=== PATIENT | female | born 1960 | race Caucasian/White ===

== ENCOUNTER 2018-06-13 21:09 | Emergency (ER) | payer OTHER, BC ==
[2018-06-13 21:55] LABS: ADD MAN DIFF? NO
[2018-06-13 21:56] LABS: BASOPHIL # 0.1 10^3/ul (0.0-0.1); BASOPHILS % 0.9 % (0.0-2.0); EOSINOPHILS # 0.4 10^3/ul (0.0-0.5); EOSINOPHILS % 3.7 % (0.0-7.0); HEMATOCRIT 42.2 % (37.0-47.0); HEMOGLOBIN 14.3 g/dl (12.0-16.0); LYMPHOCYTES # 2.1 10^3/ul (0.8-2.9); LYMPHOCYTES % 21.1 % (15.0-51.0); MEAN CORPUSCULAR HGB CONC 33.9 g/dl (32.0-37.0); MEAN CORPUSCULAR VOLUME 82.7 fl (82.0-101.0); MEAN PLATELET VOLUME 10.3 fl (7.4-10.4); MONOCYTE # 1.2 10^3/ul (0.3-0.9); MONOCYTES % 11.9 % (0.0-11.0); NEUTROPHIL # 6.2 10^3/ul (1.6-7.5); NEUTROPHILS % 62.1 % (39.0-77.0); PLATELET COUNT 308 10^3/UL (140-415); RED CELL DISTRIBUTION WIDTH 15.3 % (11.5-14.5)
[2018-06-13] MEDS: ONDANSETRON 4 MG INJ IV (21:56)
[2018-06-13] MEDS: morphine 2 MG INJ IV ×2 (21:56→23:29)
[2018-06-13 22:06] LABS: URINE BLOOD (Dip) POC Trace-lysed (NEGATIVE); URINE GLUCOSE (Dip) POC Negative (NEGATIVE); URINE KETONES (Dip) POC Negative (NEGATIVE); URINE LEUKOCYTE EST (Dip) POC Trace (NEGATIVE); URINE NITRITE (Dip) POC Negative (NEGATIVE); URINE TOTAL PROTEIN POC Negative (NEGATIVE)
[2018-06-13 22:13] LABS: ALANINE AMINOTRANSFERASE 63 IU/L (13-69); ALBUMIN 4.4 g/dl (3.3-4.9); ALKALINE PHOSPHATASE 107 IU/L (42-121); ANION GAP 13 (5-13); ASPARTATE AMINO TRANSFERASE 61 IU/L (15-46); BILIRUBIN,INDIRECT 0.8 mg/dl (0-1.1); BILIRUBIN,TOTAL 0.8 mg/dl (0.2-1.3); BLOOD UREA NITROGEN 10 mg/dl (7-20); CALCIUM 9.1 mg/dl (8.4-10.2); CARBON DIOXIDE 23 mmol/L (21-31); CHLORIDE 99 mmol/L (97-110); CREATININE 0.66 mg/dl (0.44-1.00); Estimated GFR > 60 mL/min (>60); GLUCOSE 143 mg/dl (70-220); LIPASE 123 U/L (23-300); POTASSIUM 4.4 mmol/L (3.5-5.1); SODIUM 135 mmol/L (135-144); TOTAL PROTEIN 8.4 g/dl (6.1-8.1)
== END 2018-06-13 23:30 | disposition home or self-care (01) ==
LOC: E/R 23:30
DX: K80.50 Calculus of bile duct without cholangitis or cholecystitis without obstruction (principal); C18.9 Malignant neoplasm of colon, unspecified
CPT/HCPCS: 36415; 74176; 80053; 81003; 83690; 85025; 96374; 96375; 99285-25

== ENCOUNTER 2018-07-15 10:50 | Inpatient (IN) | payer OTHER ==
[2018-07-15 11:54] LABS: ADD MAN DIFF? NO
[2018-07-15 11:57] LABS: WHITE BLOOD COUNT 7.4 10^3/ul (4.8-10.8)
[2018-07-15 11:57] LABS: BASOPHIL # 0.1 10^3/ul (0.0-0.1); BASOPHILS % 0.7 % (0.0-2.0); EOSINOPHILS # 0.4 10^3/ul (0.0-0.5); EOSINOPHILS % 5.7 % (0.0-7.0); HEMATOCRIT 40.5 % (37.0-47.0); HEMOGLOBIN 13.4 g/dl (12.0-16.0); LYMPHOCYTES # 1.3 10^3/ul (0.8-2.9); LYMPHOCYTES % 17.8 % (15.0-51.0); MEAN CORPUSCULAR HEMOGLOBIN 28.3 pg (29.0-33.0); MEAN CORPUSCULAR HGB CONC 33.1 g/dl (32.0-37.0); MEAN CORPUSCULAR VOLUME 85.6 fl (82.0-101.0); MEAN PLATELET VOLUME 10.2 fl (7.4-10.4); MONOCYTE # 0.8 10^3/ul (0.3-0.9); MONOCYTES % 11.3 % (0.0-11.0); NEUTROPHIL # 4.8 10^3/ul (1.6-7.5); NEUTROPHILS % 64.2 % (39.0-77.0); PLATELET COUNT 307 10^3/UL (140-415); RED BLOOD COUNT 4.73 10^6/ul (4.20-5.40); RED CELL DISTRIBUTION WIDTH 15.1 % (11.5-14.5)
[2018-07-15 12:17] LABS: INR 1.02; PROTIME 13.5 Sec (11.9-14.9); PT RATIO 1.1
[2018-07-15 12:18] LABS: ALANINE AMINOTRANSFERASE 40 IU/L (13-69); ALBUMIN 4.2 g/dl (3.3-4.9); ALBUMIN/GLOBULIN RATIO 1.13; ALKALINE PHOSPHATASE 80 IU/L (42-121); ANION GAP 10 (5-13); ASPARTATE AMINO TRANSFERASE 45 IU/L (15-46); BILIRUBIN,INDIRECT 0.2 mg/dl (0-1.1); BILIRUBIN,TOTAL 0.2 mg/dl (0.2-1.3); BLOOD UREA NITROGEN 6 mg/dl (7-20); CALCIUM 8.7 mg/dl (8.4-10.2); CARBON DIOXIDE 30 mmol/L (21-31); CHLORIDE 100 mmol/L (97-110); Estimated GFR > 60 mL/min (>60); GLUCOSE 134 mg/dl (70-220); POTASSIUM 4.3 mmol/L (3.5-5.1); SODIUM 140 mmol/L (135-144); TOTAL PROTEIN 7.9 g/dl (6.1-8.1)
[2018-07-15 12:30] LABS: TROPONIN-I < 0.012 ng/ml (0.000-0.120)
[2018-07-15] MEDS: SOD CHLORIDE 0.9% 100 ML (12:44)
[2018-07-15] MEDS: IOHEXOL 100 ML (12:45)
[2018-07-15] MEDS ORDERED: ONDANSETRON 4 MG INJ IV (16:00)
[2018-07-15] MEDS ORDERED: morphine SULFATE/PF (2 MG/2 ML) SYG IV (16:30)
[2018-07-15] MEDS: ACETAMINOPHEN 325 MG TAB PO (18:35)
[2018-07-15] MEDS: DEXAMETHASONE 4 MG/ML 1 ML INJ IV (18:35)
[2018-07-15] MEDS: LEVETIRACETAM 500 MG (PMX) 100 ML IVPB (21:49)
[2018-07-16] MEDS: DEXAMETHASONE 4 MG/ML 1 ML INJ IV ×4 (00:21→18:11)
[2018-07-16] MEDS: LEVETIRACETAM 500 MG (PMX) 100 ML IVPB ×2 (08:34→20:52)
[2018-07-16 15:09] LABS: PARTIAL THROMBOPLASTIN TIME 26.9 Sec (23.0-35.0)
[2018-07-16] MEDS: SOD CHLORIDE 0.9% 100 ML (21:54)
[2018-07-16] MEDS: IOHEXOL 300MG/ML 150 ML BTL (21:54)
[2018-07-17] MEDS: DEXAMETHASONE 4 MG/ML 1 ML INJ IV ×5 (01:25→23:33)
[2018-07-17] MEDS: PANTOPRAZOLE 40 MG INJ IV (06:34)
[2018-07-17] MEDS: LEVETIRACETAM 500 MG (PMX) 100 ML IVPB ×2 (09:41→20:50)
[2018-07-17 10:49] LABS: ADD MAN DIFF? NO
[2018-07-17 10:51] LABS: WHITE BLOOD COUNT 17.6 10^3/ul (4.8-10.8)
[2018-07-17 10:51] LABS: BASOPHILS % 0.1 % (0.0-2.0); HEMATOCRIT 40.6 % (37.0-47.0); HEMOGLOBIN 13.3 g/dl (12.0-16.0); LYMPHOCYTES % 5.6 % (15.0-51.0); MEAN CORPUSCULAR HEMOGLOBIN 28.3 pg (29.0-33.0); MEAN CORPUSCULAR HGB CONC 32.8 g/dl (32.0-37.0); MEAN CORPUSCULAR VOLUME 86.4 fl (82.0-101.0); MEAN PLATELET VOLUME 10.6 fl (7.4-10.4); MONOCYTE # 0.9 10^3/ul (0.3-0.9); NEUTROPHIL # 15.6 10^3/ul (1.6-7.5); NEUTROPHILS % 88.7 % (39.0-77.0); PLATELET COUNT 385 10^3/UL (140-415); RED CELL DISTRIBUTION WIDTH 15.5 % (11.5-14.5)
[2018-07-17 11:08] LABS: ALANINE AMINOTRANSFERASE 34 IU/L (13-69); ALBUMIN 4.3 g/dl (3.3-4.9); ALBUMIN/GLOBULIN RATIO 1.13; ALKALINE PHOSPHATASE 91 IU/L (42-121); ANION GAP 11 (5-13); ASPARTATE AMINO TRANSFERASE 37 IU/L (15-46); BILIRUBIN,INDIRECT 0.1 mg/dl (0-1.1); BILIRUBIN,TOTAL 0.1 mg/dl (0.2-1.3); BLOOD UREA NITROGEN 12 mg/dl (7-20); CALCIUM 9.2 mg/dl (8.4-10.2); CARBON DIOXIDE 27 mmol/L (21-31); CHLORIDE 100 mmol/L (97-110); CREATININE 0.66 mg/dl (0.44-1.00); Estimated GFR > 60 mL/min (>60); GLUCOSE 314 mg/dl (70-220); POTASSIUM 3.9 mmol/L (3.5-5.1); SODIUM 138 mmol/L (135-144); TOTAL PROTEIN 8.1 g/dl (6.1-8.1)
[2018-07-17] MEDS: DEXTROSE 5%-0.9% NACL 1,000 ML IV (18:35)
[2018-07-18] MEDS: PANTOPRAZOLE 40 MG INJ IV (05:22)
[2018-07-18] MEDS: DEXAMETHASONE 4 MG/ML 1 ML INJ IV ×3 (05:22→18:00)
[2018-07-18 05:45] LABS: ADD MAN DIFF? NO
[2018-07-18 05:53] LABS: BASOPHILS % 0.1 % (0.0-2.0); HEMATOCRIT 39.1 % (37.0-47.0); LYMPHOCYTES % 5.9 % (15.0-51.0); MEAN CORPUSCULAR HEMOGLOBIN 28.4 pg (29.0-33.0); MEAN CORPUSCULAR HGB CONC 33.2 g/dl (32.0-37.0); MEAN CORPUSCULAR VOLUME 85.4 fl (82.0-101.0); MEAN PLATELET VOLUME 10.8 fl (7.4-10.4); MONOCYTE # 0.8 10^3/ul (0.3-0.9); MONOCYTES % 4.5 % (0.0-11.0); NEUTROPHIL # 15.5 10^3/ul (1.6-7.5); NEUTROPHILS % 88.8 % (39.0-77.0); PLATELET COUNT 353 10^3/UL (140-415); RED BLOOD COUNT 4.58 10^6/ul (4.20-5.40); RED CELL DISTRIBUTION WIDTH 15.3 % (11.5-14.5)
[2018-07-18 05:53] LABS: WHITE BLOOD COUNT 17.4 10^3/ul (4.8-10.8)
[2018-07-18 06:07] LABS: ALANINE AMINOTRANSFERASE 31 IU/L (13-69); ALBUMIN 3.7 g/dl (3.3-4.9); ALBUMIN/GLOBULIN RATIO 1.12; ALKALINE PHOSPHATASE 89 IU/L (42-121); ANION GAP 8 (5-13); ASPARTATE AMINO TRANSFERASE 30 IU/L (15-46); BILIRUBIN,INDIRECT 0.1 mg/dl (0-1.1); BILIRUBIN,TOTAL 0.1 mg/dl (0.2-1.3); BLOOD UREA NITROGEN 13 mg/dl (7-20); CALCIUM 8.9 mg/dl (8.4-10.2); CARBON DIOXIDE 27 mmol/L (21-31); CHLORIDE 105 mmol/L (97-110); CREATININE 0.62 mg/dl (0.44-1.00); Estimated GFR > 60 mL/min (>60); GLUCOSE 232 mg/dl (70-220); POTASSIUM 4.2 mmol/L (3.5-5.1); SODIUM 140 mmol/L (135-144)
[2018-07-18 06:11] LABS: MAGNESIUM 2.4 mg/dl (1.7-2.5)
[2018-07-18 06:11] LABS: PHOSPHORUS 3.9 mg/dl (2.5-4.9)
[2018-07-18] MEDS: DEXTROSE 5%-0.9% NACL 1,000 ML IV ×2 (06:50→13:57)
[2018-07-18] MEDS ORDERED: SEVOFLURANE 15 MIN (07:00)
[2018-07-18] MEDS: LEVETIRACETAM 500 MG (PMX) 100 ML IVPB (08:50)
[2018-07-18] MEDS ORDERED: POVIDONE IODINE 10% 28.4 GM OINT (16:33)
[2018-07-18] MEDS ORDERED: MIDAZOLAM 1 MG/ML 2 ML INJ (17:12)
[2018-07-18] MEDS ORDERED: CEFAZOLIN 1 GM INJ ×2 (17:37→22:22)
[2018-07-18] MEDS ORDERED: DEXAMETHASONE 4 MG/ML 5 ML INJ (17:37)
[2018-07-18] MEDS ORDERED: MANNITOL 20% 500 ML IV (18:00)
[2018-07-18] MEDS: THROMBIN 5000 UNIT VIAL (19:07)
[2018-07-18] MEDS: BUPIVACAINE 0.5%/EPI (SDV) 30 ML INJ (19:07)
[2018-07-18] MEDS: LIDOCAINE 0.5% (MDV) 50 ML INJ (19:08)
[2018-07-18] MEDS: GELATIN SIZE 100 SPONGE (19:08)
[2018-07-18] MEDS: POLYMYXIN/BACITRACIN 1L IRRIG (19:08)
[2018-07-18] MEDS ORDERED: NEOMYC/POLYMYX/BACIT 30 GM OINT (22:22)
[2018-07-18] MEDS ORDERED: PROPOFOL 20 ML (22:22)
[2018-07-18] MEDS ORDERED: LIDOCAINE 2% (SDV) 5 ML INJ (22:22)
[2018-07-18] MEDS ORDERED: ROCURONIUM 50 MG INJ (22:22)
[2018-07-18] MEDS ORDERED: ONDANSETRON 4 MG INJ (22:24)
[2018-07-18] MEDS ORDERED: SOD CHLORIDE 0.9% 1,000 ML IV (23:00)
[2018-07-18] MEDS ORDERED: BISACODYL 10 MG SUPP PR (23:00)
[2018-07-18] MEDS ORDERED: NALOXONE (0.4 MG/ML) INJ IV (23:00)
[2018-07-18] MEDS ORDERED: CEFAZOLIN 1 GM/50 ML (PMX) 50 ML IVPB (23:00)
[2018-07-18] MEDS ORDERED: ONDANSETRON 4 MG INJ IV ×2 (23:00→23:30)
[2018-07-18] MEDS ORDERED: hydrALAzine 20 MG INJ IV (23:30)
[2018-07-18] MEDS ORDERED: DIPHENHYDRAMINE 50 MG INJ IV (23:30)
[2018-07-18] MEDS ORDERED: METOCLOPRAMIDE 10 MG INJ IV (23:30)
[2018-07-18] MEDS ORDERED: MEPERIDINE 25 MG INJ IV (23:30)
[2018-07-18] MEDS ORDERED: morphine (1 MG/ML) 10ML SYRINGE IV ×2 (23:30)
[2018-07-18] MEDS ORDERED: LABETALOL HCL 20MG INJ IV (23:30)
[2018-07-19] MEDS ORDERED: hydrALAzine 20 MG INJ IV (00:30)
[2018-07-19] MEDS: HYDROmorphONE 0.5 MG/0.5 ML SYG IV (01:23)
[2018-07-19] MEDS: DEXTROSE 5%-0.9% NACL 1,000 ML IV (01:25)
[2018-07-19] MEDS: LEVETIRACETAM 500 MG (PMX) 100 ML IVPB ×3 (01:25→22:20)
[2018-07-19] MEDS: DEXAMETHASONE 4 MG/ML 1 ML INJ IV ×4 (01:26→17:20)
[2018-07-19] MEDS: CEFAZOLIN 1 GM/50 ML (PMX) 50 ML IVPB ×3 (04:05→20:58)
[2018-07-19 05:09] LABS: ADD MAN DIFF? NO
[2018-07-19 05:18] LABS: ABNORMAL IP MESSAGE 1; BASOPHILS % 0.1 % (0.0-2.0); HEMATOCRIT 38.7 % (37.0-47.0); HEMOGLOBIN 12.4 g/dl (12.0-16.0); LYMPHOCYTES # 0.8 10^3/ul (0.8-2.9); LYMPHOCYTES % 4.3 % (15.0-51.0); MEAN CORPUSCULAR VOLUME 87.4 fl (82.0-101.0); MEAN PLATELET VOLUME 11.2 fl (7.4-10.4); MONOCYTE # 1.8 10^3/ul (0.3-0.9); MONOCYTES % 10.1 % (0.0-11.0); NEUTROPHIL # 15.3 10^3/ul (1.6-7.5); PLATELET COUNT 377 10^3/UL (140-415); RED BLOOD COUNT 4.43 10^6/ul (4.20-5.40); RED CELL DISTRIBUTION WIDTH 15.6 % (11.5-14.5)
[2018-07-19 05:40] LABS: ANION GAP 10 (5-13); BLOOD UREA NITROGEN 17 mg/dl (7-20); CALCIUM 8.4 mg/dl (8.4-10.2); CARBON DIOXIDE 28 mmol/L (21-31); CHLORIDE 107 mmol/L (97-110); CREATININE 0.68 mg/dl (0.44-1.00); Estimated GFR > 60 mL/min (>60); GLUCOSE 256 mg/dl (70-220); POTASSIUM 3.9 mmol/L (3.5-5.1); SODIUM 145 mmol/L (135-144)
[2018-07-19 05:48] LABS: POSITIVE DIFF @See below
[2018-07-19] MEDS: PANTOPRAZOLE 40 MG INJ IV (05:59)
[2018-07-19] MEDS: DOCUSATE SODIUM 100 MG CAP PO ×2 (11:05→20:58)
[2018-07-19] MEDS: NEOMYC/POLYMYX/BACIT 30 GM OINT TOP ×3 (11:06→21:10)
[2018-07-19] MEDS: HYDROCODONE/APAP (10/325) TAB PO ×2 (11:10→17:11)
[2018-07-19] MEDS: INSULIN ASPART [NOVOLOG] 3 ML PEN SC ×4 (12:17→21:15)
[2018-07-20] MEDS: DEXAMETHASONE 4 MG/ML 1 ML INJ IV ×3 (00:06→12:11)
[2018-07-20] MEDS: HYDROCODONE/APAP (10/325) TAB PO ×2 (00:12→05:53)
[2018-07-20] MEDS: PANTOPRAZOLE 40 MG INJ IV (05:48)
[2018-07-20] MEDS: LEVETIRACETAM 500 MG (PMX) 100 ML IVPB (08:00)
[2018-07-20] MEDS: DOCUSATE SODIUM 100 MG CAP PO (08:00)
[2018-07-20] MEDS: NEOMYC/POLYMYX/BACIT 30 GM OINT TOP ×2 (08:01→12:30)
[2018-07-20] MEDS: INSULIN ASPART [NOVOLOG] 3 ML PEN SC ×2 (08:05→12:30)
[2018-07-20] MEDS: INSULIN GLARGINE [LANTus] (100 UNITS/ML) SYG SC (08:06)
== END 2018-07-20 13:40 | disposition home health service (06) | DRG 25 ==
LOC: 6WM 07-16 14:26 → E/R 10:50 → ICU 07-18 18:00 → 6WM 13:08
PROC: 00B00ZZ Excision of Brain, Open Approach (ICD-10-PCS; principal; 2018-07-18 12:30)
PROC: 8E09XBH Computer Assisted Procedure of Head and Neck Region, With Magnetic Resonance Imaging (ICD-10-PCS; 2018-07-18 12:30)
DX: C79.31 Secondary malignant neoplasm of brain (principal); G93.6 Cerebral edema; C18.9 Malignant neoplasm of colon, unspecified; C78.7 Secondary malignant neoplasm of liver and intrahepatic bile duct; C78.00 Secondary malignant neoplasm of unspecified lung; R47.01 Aphasia; G81.94 Hemiplegia, unspecified affecting left nondominant side
CPT/HCPCS: 36415; 70450; 70496; 70498; 70551; 70552; 70553; 71260; 74177; 80048; 80053; 82962; 83735; 84100; 84484; 85025; 85610; 85730; 86900; 86901; 87081; 88307; 88313; 88331; 88341; 88342; 93005; 93306; 93970; 97161; 97164; 97530; 99285-25

== ENCOUNTER 2018-09-19 16:41 | Emergency (ER) | payer OTHER ==
[2018-09-19 19:34] LABS: URINE BLOOD (Dip) POC 3+ (NEGATIVE); URINE GLUCOSE (Dip) POC Negative (NEGATIVE); URINE KETONES (Dip) POC Negative (NEGATIVE); URINE LEUKOCYTE EST (Dip) POC 1+ (NEGATIVE); URINE NITRITE (Dip) POC Negative (NEGATIVE); URINE TOTAL PROTEIN POC 2+ (NEGATIVE)
[2018-09-19] MEDS: CEFTRIAXONE 1 GM INJ IM (19:55)
== END 2018-09-19 20:05 | disposition home or self-care (01) ==
LOC: FTE 16:41
DX: N30.01 Acute cystitis with hematuria (principal); Z85.9 Personal history of malignant neoplasm, unspecified
CPT/HCPCS: 81003; 96372; 99284-25